=== PATIENT | female | born 1950 | race Caucasian/White ===

== ENCOUNTER 2018-04-18 12:11 | Emergency (ER) | payer OTHER ==
[2018-04-18 12:17] VITALS: BP 163/87; PULSE 96; TEMP 98.3; BMI 35.6
--- NOTE | 2018-04-18 13:01 | PDOC ---
History of Present Illness - General Chief Complaint: Pain Stated Complaint: pain Time Seen by Provider: 04/18/18 12:17 History Source: Patient Exam Limitations: No Limitations - History of Present Illness Initial Comments: 04/18/18 12:57 HISTORY OF PRESENT ILLNESS: This 68-year-old woman past medical history of hypertension presents emergency department for evaluation of atraumatic left knee pain for the past "couple of days." Patient denies any trauma or falls. Patient is unsure if she slipped on some ice while walking but does not remember any major slips or sudden stops. Patient reports the pain gets worse with prolonged walking and standing.. No recent travel or sick contacts. PAST MEDICAL HISTORY: HTN SURGICAL HISTORY: Denies ALLERGIES: No known drug allergies REVIEW OF SYSTEMS General/Constitutional: Denies fever or chills. Denies weakness, weight change. HEENT: Denies change in vision. Denies ear pain or discharge. Denies sore throat. Cardiovascular: Denies chest pain or shortness of breath. Respiratory: Denies cough, wheezing, or hemoptysis. Gastrointestinal: Denies nausea, vomiting, diarrhea or constipation. Denies rectal bleeding. Genitourinary: Denies dysuria, frequency, or change in urination. Musculoskeletal: see HPI Skin and breasts: Denies rash or easy bruising. Neurologic: Denies headache, vertigo, loss of consciousness, or loss of sensation. Psychiatric: Denies depression or anxiety. Endocrine: Denies increased thirst. Denies abnormal weight change. Hematologic/Lymphatic: Denies anemia, easy bleeding, or history of blood clots. Allergic/Immunologic: Denies hives or skin allergy. Denies latex allergy. PHYSICAL EXAM General Appearance: Well-appearing, appropriately dressed. No apparent distress , no intoxication. HEENT: EOMI, PERRLA, normal ENT inspection, normal voice, TMs normal, pharynx normal. No conjunctival pallor. No photophobia, scleral icterus. Neck: Supple. Trachea midline. No tenderness, rigidity, carotid bruit, stridor , lymphadenopathy, or thyromegaly. Respiratory/Chest: Lungs CTAB. No shortness of breath, chest tenderness, respiratory distress, accessory muscle use. No crackles, rales, rhonchi, stridor , wheezing, dullness Cardiovascular: RRR. S1, S2. No JVD, murmur, bradycardia, tachycardia. Vascular Pulses: Dorsalis-Pedis (R): 2+, Dorsalis-Pedis (L): 2+ Gastrointestinal/Abdominal: Normal bowel sounds. Abdomen soft, non-distended. No tenderness or rebound tenderness. No organomegaly, pulsatile mass, guarding, hernia, hepatomegaly, splenomegaly. Lymphatic: No adenopathy, tenderness. Musculoskeletal/Extremities: Full range of motion of bilateral knees. No erythema or bony tenderness present. Patient with normal capillary refill. Negative Julienne test. No nasal instability present. Left second toe overriding great toe. No calf tenderness or cords present. Integumentary: Appropriate color, dry, warm. No cyanosis, erythema, jaundice or rash Neurologic: house decorator II-XII intact. Fully oriented, alert. Appropriate mood/affect. Motor strength 5/5. No appreciable EOM palsy, facial droop or sensory deficit. Past History - Past Medical History Allergies/Adverse Reactions: Allergies Allergy/AdvReac Type Severity Reaction Status Date / Time No Known Allergies Allergy Verified 04/18/18 12:14 Home Medications: Ambulatory Orders NK [No Known Home Medication] 04/18/18 COPD: No HTN: Yes - Suicide/Smoking/Psychosocial Hx Smoking History: Never smoked *Physical Exam - Vital Signs Last Vital Signs Temp Pulse Resp BP Pulse Ox 98.3 F 96 H 18 163/87 96 04/18/18 12:15 04/18/18 12:15 04/18/18 12:15 04/18/18 12:15 04/18/18 12:15 Moderate Sedation - Procedure Monitoring Vital Signs: Procedure Monitoring Vital Signs Temperature 98.3 F 04/18/18 12:15 Pulse Rate 96 H 04/18/18 12:15 Respiratory Rate 18 04/18/18 12:15 Blood Pressure 163/87 04/18/18 12:15 O2 Sat by Pulse Oximetry (%) 96 04/18/18 12:15 Medical Decision Making - Medical Decision Making 04/18/18 13:00 A/P: 68-year-old woman with atraumatic left knee pain for a few days Differential diagnosis includes osteoarthritis secondary to obesity, DVT, Brown' s cyst, ligamentous injury Ultrasound X-ray Reassess 04/18/18 15:03 Ultrasound of the left lower extremity as read by Dr. Vazquez: No evidence of dependent thrombosis in the left lower extremity. No Brown's cyst is identified within the popliteal fossa. Note is made of soft tissue swelling with prepatellar fluid collection measuring approximately 5.7 x 5 cm. X-rays read by me: No acute fractures or dislocations present. Knee immobilizer Crutches Discharge home with orthopedic follow-up *DC/Admit/Observation/Transfer Diagnosis at time of Disposition: Left knee pain Qualifiers: Chronicity: acute Qualified Code(s): M25.562 - Pain in left knee - Discharge Dispostion Disposition: HOME Condition at time of disposition: Stable Decision to Admit order: No - Referrals Referrals: Michelle Cueva MD [Primary Care Provider] - Griffin Baig MD [Staff Physician] - - Patient Instructions Additional Instructions: Take Tylenol or Motrin as needed for pain. Follow manufacturers instructions for appropriate dosage. Try not to bear weight on your left ankle as much as possible for the next 3 days. Apply ice for 20 minutes and removed for at least 20 minutes before reapplying the ice. Keep immobilizer on your knee as much as possible to help decrease some of the swelling control pain. Whenever possible keep your foot elevated to decrease swelling. You've been given the number for an orthopedist. If symptoms do not resolve within the next 7 days call the orthopedist for further evaluation. Return to emergency department for discoloration of the foot, numbness or tingling to the foot, worsening pain, or any other concerns. Thank you very much for choosing us to provide your emergent healthcare needs. - Post Discharge Activity Forms/Work/School Notes: Back to Work
== END 2018-04-18 15:42 | disposition home or self-care (01) ==
LOC: JERFT 12:11
PROC: 2W3RXYZ Immobilization of Left Lower Leg using Other Device (ICD-10-PCS; principal; 2018-04-18)
DX: M25.562 Pain in left knee (principal)
CPT/HCPCS: 73560-TC-LT-FY; 93971-TC; 99281-25

== ENCOUNTER 2020-07-20 09:27 | Emergency (ER) | payer OTHER ==
[2020-07-20] MEDS ORDERED: BACITRACIN 15 GM TUBE TOPICAL OINTMENT ONE (09:46)
[2020-07-20 09:55] VITALS: BP 165/85; PULSE 58; TEMP 98.6; BMI 36.6
[2020-07-20] MEDS ORDERED: KETOROLAC TROMETHAMINE 15 MG/ML VIAL IM ONE (10:02)
[2020-07-20] MEDS ORDERED: KETOROLAC TROMETHAMINE 15 MG/ML VIAL ONE (10:06)
== END 2020-07-20 10:14 | disposition home or self-care (01) ==
LOC: JERFT 09:27 → JER 09:27 → JERFT 10:14
PROC: 3E0233Z Introduction of Anti-inflammatory into Muscle, Percutaneous Approach (ICD-10-PCS; principal; 2020-07-20)
DX: M25.561 Pain in right knee (principal)
CPT/HCPCS: 99284-25

== ENCOUNTER 2021-09-19 11:50 | Emergency (ER) | payer OTHER ==
[2021-09-19 11:58] VITALS: BP 170/87; PULSE 84; RESP 18; TEMP 98; BMI 36.6
[2021-09-19] MEDS ORDERED: ACETAMINOPHEN 500 MG TABLET (FP) PO ONE (12:24)
[2021-09-19] MEDS ORDERED: ACETAMINOPHEN 500 MG TABLET (FP) ONE (12:26)
[2021-09-19] MEDS ORDERED: LIDOCAINE 1%/EPI 1:100000 (50 ML MULTI DOSE VIAL) INF ONE (14:30)
[2021-09-19] MEDS ORDERED: LIDOCAINE 1%/EPI 1:100000 (20 ML MULTI DOSE VIAL) ONE (14:32)
[2021-09-19] MEDS ORDERED: DIPHTH,PERTUSS(ACELL),TET 0.5 ML DISP.SYRIN IM ONE ×2 (14:53→14:55)
== END 2021-09-19 14:58 | disposition home or self-care (01) ==
LOC: JERFT 11:50
PROC: 0HQ0XZZ Repair Scalp Skin, External Approach (ICD-10-PCS; principal; 2021-09-19)
PROC: 3E0234Z Introduction of Serum, Toxoid and Vaccine into Muscle, Percutaneous Approach (ICD-10-PCS; 2021-09-19)
DX: S09.90XA Unspecified injury of head, initial encounter (principal); W01.0XXA Fall on same level from slipping, tripping and stumbling without subsequent striking against object, initial encounter
CPT/HCPCS: 70450-TC; 90715; 99284-25

== ENCOUNTER 2021-10-25 08:52 | Emergency (ER) | payer OTHER ==
[2021-10-25 08:58] VITALS: BP 165/87; PULSE 77; RESP 18; TEMP 98.3; BMI 36.2
[2021-10-25] MEDS ORDERED: IBUPROFEN 600 MG TABLET (FP) PO ONE (09:35)
== END 2021-10-25 09:57 | disposition home or self-care (01) ==
LOC: JERFT 08:52
DX: M25.561 Pain in right knee (principal); W01.0XXA Fall on same level from slipping, tripping and stumbling without subsequent striking against object, initial encounter
CPT/HCPCS: 73562-TC-RT-FY; 99283-25

== ENCOUNTER 2024-02-13 10:07 | Emergency (ER) | payer OTHER ==
[2024-02-13 10:21] VITALS: BP 166/76; PULSE 76; RESP 18; TEMP 98.6; BMI 35.6
[2024-02-13] MEDS ORDERED: LIDOCAINE 4% PATCH TP ONE (11:33)
[2024-02-13] MEDS ORDERED: IBUPROFEN 600 MG TABLET (FP) PO ONE (11:33)
[2024-02-13] MEDS: LIDOCAINE 4% PATCH TP ONE (11:37)
[2024-02-13] MEDS: IBUPROFEN 600 MG TABLET (FP) PO ONE (11:38)
[2024-02-13] MEDS ORDERED: LIDOCAINE PATCH REMOVAL MC SCH (22:00)
== END 2024-02-13 13:16 | disposition home or self-care (01) ==
LOC: JERFT 10:07
DX: S76.012A Strain of muscle, fascia and tendon of left hip, initial encounter (principal); X58.XXXA Exposure to other specified factors, initial encounter
CPT/HCPCS: 99283-25